=== PATIENT | female | born 1955 | race Caucasian/White ===

== ENCOUNTER 2021-01-26 00:46 | Emergency (ER) | payer MEDICARE ==
[~2021-01-26] VITALS: Ht 172.7 cm; Wt 59.1 kg
[2021-01-26] MEDS ORDERED: DURAGESIC50 MCG/PAT TD (01:06)
[2021-01-26] MEDS ORDERED: ROXICODONE5 M1 PO (01:07)
[2021-01-26] MEDS ORDERED: RISPERIDONE4 MG PO (01:07)
[2021-01-26] MEDS ORDERED: FENTANYL1 EAC3 TD (01:07)
[2021-01-26] MEDS ORDERED: SYNTHROID0.05 MG PO (01:08)
[2021-01-26] MEDS ORDERED: LEVOFLOXACIN500 M1 PO (01:08)
[2021-01-26] MEDS ORDERED: MYLANTA MAXIMU355 M1 PO (01:09)
[2021-01-26] MEDS ORDERED: POTASSIUM CHLO10 ME5 PO (01:09)
[2021-01-26] MEDS ORDERED: PROZAC40 M1 PO (01:10)
[2021-01-26] MEDS ORDERED: LASIX20 M1 PO (01:10)
[2021-01-26] MEDS ORDERED: TYLENOL 8 HOUR650 M1 PO (01:10)
[2021-01-26] MEDS ORDERED: CULTURELLE1 EACH PO (01:11)
[2021-01-26] MEDS ORDERED: SENNA LAX8.6 M1 PO (01:11)
[2021-01-26] MEDS ORDERED: MIRALAX17 GM PO (01:11)
[2021-01-26] MEDS ORDERED: BENADRYL PO (01:12)
[2021-01-26] MEDS ORDERED: GABAPENTIN250 MG/5 M PO (01:12)
[2021-01-26 02:04] VITALS: BP 123/77
== END 2021-01-26 02:04 | disposition home or self-care (01) ==
LOC: ED 00:46
DX: Z43.0 Encounter for attention to tracheostomy (principal); C06.9 Malignant neoplasm of mouth, unspecified
CPT/HCPCS: 19862

== ENCOUNTER 2021-02-21 15:58 | Emergency (ER) | payer MEDICARE ==
[~2021-02-21] VITALS: Wt 56.6 kg
[~2021-02-21 15:58] MED LIST: BENADRYL PO; CULTURELLE1 EACH PO; DURAGESIC50 MCG/PAT TD; FENTANYL1 EAC3 TD; GABAPENTIN250 MG/5 M PO; LASIX20 M1 PO; LEVOFLOXACIN500 M1 PO; MIRALAX17 GM PO; MYLANTA MAXIMU355 M1 PO; POTASSIUM CHLO10 ME5 PO; PROZAC40 M1 PO; RISPERIDONE4 MG PO; ROXICODONE5 M1 PO; SENNA LAX8.6 M1 PO; SYNTHROID0.05 MG PO; TYLENOL 8 HOUR650 M1 PO
[2021-02-21] MEDS ORDERED: CALCIUM500 M1 PO (16:33)
[2021-02-21] MEDS ORDERED: DAILY VITAMIN1 EAC3 PO (16:34)
[2021-02-21] MEDS ORDERED: CHILDREN'S5 MG/5 M9 PO (16:34)
[2021-02-21] MEDS ORDERED: PEPTO-BISM262 MG/15 PO (16:38)
[2021-02-21] MEDS ORDERED: DOXYCYCLINE HY100 M5 PO (16:40)
[2021-02-21] MEDS ORDERED: CLEOCIN HCL300 MG PO (17:03)
[2021-02-21 17:17] VITALS: BP 147/84
== END 2021-02-21 17:34 | disposition home or self-care (01) ==
LOC: ED 15:58
DX: R21 Rash and other nonspecific skin eruption (principal); T36.4X5A Adverse effect of tetracyclines, initial encounter; J69.0 Pneumonitis due to inhalation of food and vomit; Z88.0 Allergy status to penicillin
CPT/HCPCS: J7512